=== PATIENT | female | born 1970 | race Two or more races ===

== ENCOUNTER 2017-09-28 16:38 | Emergency (ER) | payer MEDICAID ==
[~2017-09-28] VITALS: Ht 177.8 cm; Wt 100.7 kg
[2017-09-28 16:52] VITALS: BP 130/63
[2017-09-28 19:17] LABS: Urine Bacteria NONE SEEN /hpf (None Seen); Urine Blood 1+ /uL (Negative); Urine Mucus FEW (None Seen); Urine Specific Gravity 1.031 (1.001-1.035); Urine WBC 1 /hpf (0 - 5)
== END 2017-09-29 02:55 | disposition left against medical advice (07) ==
LOC: ER 16:48
DX: R07.9 Chest pain, unspecified (principal); Z53.21 Procedure and treatment not carried out due to patient leaving prior to being seen by health care provider
CPT/HCPCS: 81001; 81025; 93005